=== PATIENT | male | born 1950 | race Caucasian/White ===

== ENCOUNTER 2018-12-02 05:57 | Inpatient (IN) | payer MEDICARE, OTHER ==
[~2018-12-02] VITALS: Ht 188 cm; Wt 94.0 kg
[2018-12-02] MEDS ORDERED: morphine 2 MG INJ IV STA (07:19)
[2018-12-02] MEDS ORDERED: ONDANSETRON 4 MG INJ IV PRN ×2 (08:00→09:00)
[2018-12-02] MEDS ORDERED: ACETAMINOPHEN 325 MG TAB PO PRN ×2 (08:00→09:00)
[2018-12-02] MEDS ORDERED: NACL 0.9% 3 ML SYG IV SCH (09:00)
[2018-12-02] MEDS ORDERED: DOCUSATE SODIUM 100 MG CAP PO PRN (09:00)
[2018-12-02] MEDS ORDERED: ACETAMINOPHEN 650 MG SUPP PR PRN (09:00)
[2018-12-02] MEDS ORDERED: BISACODYL (EC) 5 MG TAB PO PRN (09:00)
[2018-12-02] MEDS ORDERED: morphine 2 MG INJ IV PRN (09:00)
[2018-12-02 09:30] VITALS: BP 126/81; PULSE 74; RESP 16
[2018-12-02] MEDS: PANTOPRAZOLE (EC) 40 MG TAB PO SCH (10:00)
[2018-12-02] MEDS: ENOXAPARIN 40 MG/0.4 ML SYG SC SCH (10:00)
[2018-12-02 11:14] VITALS: Ht 188 cm; Wt 94.0 kg
[2018-12-02] MEDS ORDERED: PENDING SANTYL ORDER FOR WOUND CARE XX PRN (13:00)
[2018-12-02 14:20] VITALS: BP 107/61; PULSE 66; RESP 16
[2018-12-02 21:04] VITALS: BP 96/55; PULSE 67; RESP 19
[2018-12-03] VITALS (25 sets, daily range): BP systolic 94–120; BP diastolic 53–78; PULSE 68–130; RESP 10–20
[2018-12-03] MEDS: PANTOPRAZOLE (EC) 40 MG TAB PO SCH (06:00)
[2018-12-03] MEDS ORDERED: DESFLURANE 15 MIN ONE (07:19)
[2018-12-03] MEDS ORDERED: PROPOFOL 40 ML ONE (07:19)
[2018-12-03] MEDS ORDERED: GLYCOPYRROLATE 0.4 MG INJ ONE (07:19)
[2018-12-03] MEDS ORDERED: LIDOCAINE 100 MG SYRINGE ONE (07:19)
[2018-12-03] MEDS ORDERED: NEOSTIGMINE 3 MG/3 ML SYRINGE ONE (07:19)
[2018-12-03] MEDS ORDERED: ROCURONIUM 50 MG INJ ONE (07:19)
[2018-12-03] MEDS ORDERED: MIDAZOLAM 1 MG/ML 2 ML INJ ONE (07:20)
[2018-12-03] MEDS ORDERED: FENTAnyl 50 MCG/ML VIAL ONE (07:20)
[2018-12-03] MEDS ORDERED: ROPIVACAINE 0.5 % 30 ML VIAL ONE (07:27)
[2018-12-03] MEDS ORDERED: ONDANSETRON 4 MG INJ IV PRN (08:00)
[2018-12-03] MEDS ORDERED: FENTAnyl 50 MCG/ML VIAL IV PRN ×3 (08:00)
[2018-12-03] MEDS ORDERED: OXYCODONE/ACETAMINOPHEN (5/325) TAB PO PRN ×2 (08:00)
[2018-12-03] MEDS ORDERED: DIPHENHYDRAMINE 50 MG INJ IV PRN (08:00)
[2018-12-03] MEDS ORDERED: ALBUTEROL 0.083% (NEB) 2.5 MG/3 ML AMP HHN PRN (08:00)
[2018-12-03] MEDS ORDERED: EPHEDrine 25 MG/5 ML SYG IV PRN (08:00)
[2018-12-03] MEDS ORDERED: hydrALAzine 20 MG INJ IV PRN (08:00)
[2018-12-03] MEDS ORDERED: MEPERIDINE 25 MG INJ IV PRN (08:00)
[2018-12-03] MEDS ORDERED: IPRATROPIUM (NEB) 0.5 MG/2.5 ML AMP HHN PRN (08:00)
[2018-12-03] MEDS ORDERED: HYDROmorphONE 1 MG/5 ML IV SYRINGE IV PRN ×3 (08:00)
[2018-12-03] MEDS ORDERED: LABETALOL HCL 20MG INJ IV PRN (08:00)
[2018-12-03] MEDS ORDERED: EPHEDrine 25 MG/5 ML SYG ONE (08:35)
[2018-12-03] MEDS ORDERED: ONDANSETRON 4 MG INJ ONE (08:35)
[2018-12-03] MEDS ORDERED: CEFAZOLIN 1 GM INJ ONE (08:35)
[2018-12-03] MEDS ORDERED: PHENYLephrine (100 MCG/ML) 10ML SYG ONE (08:35)
[2018-12-03] MEDS ORDERED: DEXAMETHASONE 4 MG/ML 5 ML INJ ONE (08:35)
[2018-12-03] MEDS: ENOXAPARIN 40 MG/0.4 ML SYG SC SCH (09:00)
[2018-12-03] MEDS ORDERED: MAGNESIUM HYDROXIDE 30ML CUP PO PRN (13:30)
[2018-12-03] MEDS ORDERED: NA PHOSPHATE/BIPHOS 133 ML ENEMA PR PRN (13:30)
[2018-12-03] MEDS ORDERED: NACL 0.9% 3 ML SYG IV SCH (13:30)
[2018-12-03] MEDS ORDERED: SENNA/DOCUSATE NA (8.6MG/50MG) TAB PO PRN (13:30)
[2018-12-03] MEDS ORDERED: DOCUSATE SODIUM 100 MG CAP PO ONE (13:30)
[2018-12-03] MEDS ORDERED: BISACODYL 10 MG SUPP PR PRN (13:30)
[2018-12-03] MEDS: LACTATED RINGER'S 1,000 ML IV SCH (13:55)
[2018-12-04] MEDS: LACTATED RINGER'S 1,000 ML IV SCH ×2 (02:05→14:16)
[2018-12-04 08:10] VITALS: BP 142/55; PULSE 102; RESP 17
[2018-12-04] MEDS: ENOXAPARIN 40 MG/0.4 ML SYG SC SCH (09:17)
[2018-12-04] MEDS: DOCUSATE SODIUM 100 MG CAP PO SCH ×2 (09:18→20:26)
[2018-12-04] MEDS ORDERED: traMADol 50 MG TAB PO PRN (13:30)
[2018-12-04] MEDS ORDERED: ONDANSETRON 4 MG INJ IV PRN (13:30)
[2018-12-04 15:28] VITALS: BP 135/88; PULSE 85; RESP 17
[2018-12-04 19:43] VITALS: BP 111/76; PULSE 77; RESP 16
[2018-12-04] MEDS: ASPIRIN 81 MG TAB PO SCH (20:26)
[2018-12-05 02:31] VITALS: BP 125/78; PULSE 80; RESP 18
[2018-12-05] MEDS: LACTATED RINGER'S 1,000 ML IV SCH ×2 (02:46→12:18)
[2018-12-05] MEDS ORDERED: PANTOPRAZOLE (EC) 40 MG TAB PO SCH (06:00)
[2018-12-05 07:48] VITALS: BP 127/78; PULSE 89; RESP 18
[2018-12-05] MEDS: ASPIRIN 81 MG TAB PO SCH (09:04)
[2018-12-05] MEDS: DOCUSATE SODIUM 100 MG CAP PO SCH (09:05)
[2018-12-05 14:10] VITALS: BP 135/89; PULSE 79; RESP 18
[2018-12-05 14:25] VITALS: BP 122/79; PULSE 75; RESP 18
== END 2018-12-05 18:00 | DRG 493 ==
LOC: E/R 05:57 → 5EC 07:32 → MS1 12-03 12:25
PROVIDERS: ADMIT Internal Medicine; ATTEND Internal Medicine
PROC: 0QSK04Z Reposition Left Fibula with Internal Fixation Device, Open Approach (ICD-10-PCS; 2018-12-03)
PROC: 0SSG04Z Reposition Left Ankle Joint with Internal Fixation Device, Open Approach (ICD-10-PCS; 2018-12-03)
PROC: 0QSH04Z Reposition Left Tibia with Internal Fixation Device, Open Approach (ICD-10-PCS; principal; 2018-12-03 07:30)
DX: S82.852A Displaced trimalleolar fracture of left lower leg, initial encounter for closed fracture (principal); G81.94 Hemiplegia, unspecified affecting left nondominant side; I95.9 Hypotension, unspecified; N31.9 Neuromuscular dysfunction of bladder, unspecified; I89.0 Lymphedema, not elsewhere classified; S14.103S Unspecified injury at C3 level of cervical spinal cord, sequela; W01.0XXA Fall on same level from slipping, tripping and stumbling without subsequent striking against object, initial encounter; Z87.798 Personal history of other (corrected) congenital malformations
CPT/HCPCS: 36415; 70450; 71045; 73562; 73590; 73610; 80048; 80053; 80061; 83036; 83735; 84100; 85025; 85610; 85730; 93005; 93306; 93971; 97162; 97530; C1713; J0690; J1100; J1650; J2001; J2250; J2270; J2370; J2405; J2710; J2795; J3010; J7120; L4360-LT